=== PATIENT | female | born 1935 | race Caucasian/White ===

== ENCOUNTER 2017-03-19 05:53 | Day surgery (SDC) | payer MEDICARE, BC ==
[~2017-03-19 05:53] MED LIST: Dextrose 5%-0.45% NaCl 1,000 ML IV SCH; Sodium Chloride 0.9% 10 ML Syringe FLUSH PRN
[2017-03-19] MEDS ORDERED: Midazolam 1 MG/ML 2 ML SDV IV ONE ×3 (05:54→06:58)
[2017-03-19] MEDS ORDERED: fentaNYL 100 MCG/2 ML SDV IV ONE ×3 (05:54→06:57)
[2017-03-19] MEDS ORDERED: Midazolam 1 MG/ML 2 ML SDV ONE (06:18)
[2017-03-19] MEDS ORDERED: fentaNYL 100 MCG/2 ML SDV ONE (06:18)
--- NOTE | 2017-03-19 07:56 | OR ---
DATE: 03/19/2017 PROCEDURE: Esophagogastroduodenoscopy and multiple pinch biopsies. INSTRUMENT USED: GIF-Q180 Olympus video panendoscope. PREMEDICATIONS: No oral topical anesthesia used. Fentanyl 100 mcg intravenous, Versed 1.5 mg intravenous. Nasal O2 cannula. The procedure was done under pulse oximetry, BP recording, and child monitor. INDICATION: The patient with persistent upper abdominal pain, unexplained, and not responsive to medical measures, status post hiatal hernia surgery. DESCRIPTION OF PROCEDURE: Esophagogastroduodenoscopy is performed for detection of any active erosive lesions, malignancy also under consideration, H. pylori status to be determined, endoscopic hemostasis therapy if needed. The scope was passed with ease. Adequate visualization of the esophagus was made from proximal to distal areas. No upper esophageal lesions identified. No distal esophageal stricture. No uphill or downhill esophageal varices. No Alpa-Rivera tear. No evidence of erosive esophagitis by [place] criteria. No esophageal polyp or tumor mass identified. Z-line was seen at around 38 cm distal to the oral verge. No proximal gastric varices noted. Gastric fundus examination by retroflexion showed no polypoid lesions. No gastric ulcer, malignant mass, or vascular ectasia identified. Multiple 5 mm sized polyps were noted in the gastric antrum, three in number. Multiple pinch biopsies were obtained and sent for histopathology. Multiple pinch biopsies were also obtained from the gastric antrum and proximal body and sent for PyloriTek test for H. pylori and histopathology. Duodenal bulb showed no ulcer. Visualized second part of the duodenum was unremarkable. No bleeding was noted from any of the visualized areas at the completion of examination. Photographs were taken of the duodenal bulb, gastric antrum, fundus, and distal esophagus. IMPRESSION: Gastric antral polyps. The patient tolerated the procedure well. [facility] /[id number]
[2017-03-19 10:32] VITALS: BP 108/46
== END 2017-03-19 09:13 | disposition home or self-care (01) ==
LOC: DL.ENDO 05:53
PROVIDERS: ATTEND Internal Medicine Gastroenterology
DX: K29.50 Unspecified chronic gastritis without bleeding (principal); K31.7 Polyp of stomach and duodenum; E11.22 Type 2 diabetes mellitus with diabetic chronic kidney disease; I12.9 Hypertensive chronic kidney disease with stage 1 through stage 4 chronic kidney disease, or unspecified chronic kidney disease; N18.9 Chronic kidney disease, unspecified; E66.9 Obesity, unspecified; Z88.1 Allergy status to other antibiotic agents; Z88.2 Allergy status to sulfonamides; Z88.8 Allergy status to other drugs, medicaments and biological substances; E03.9 Hypothyroidism, unspecified; E78.5 Hyperlipidemia, unspecified; Z90.49 Acquired absence of other specified parts of digestive tract; Z90.710 Acquired absence of both cervix and uterus; Z87.09 Personal history of other diseases of the respiratory system; Z68.25 Body mass index [BMI] 25.0-25.9, adult
CPT/HCPCS: 43239; 87077; J2250; J3010; J7042; 88305; 88342

== ENCOUNTER 2018-08-09 07:21 | Day surgery (SDC) | payer MEDICARE, BC ==
[~2018-08-09 07:21] MED LIST changes: +Benzocaine 20% Topical Spray UD MUCMEM ONE; -Dextrose 5%-0.45% NaCl 1,000 ML IV SCH; +Midazolam 1 MG/ML 2 ML SDV ONE; -Sodium Chloride 0.9% 10 ML Syringe FLUSH PRN; +fentaNYL 100 MCG/2 ML SDV ONE
[2018-08-09] MEDS ORDERED: Midazolam 1 MG/ML 2 ML SDV IV ONE ×6 (07:22→08:36)
[2018-08-09] MEDS ORDERED: fentaNYL 100 MCG/2 ML SDV IV ONE ×3 (07:22→08:34)
[2018-08-09] MEDS ORDERED: Dextrose 5%-0.45% NaCl 1,000 ML IV SCH (08:00)
[2018-08-09] MEDS ORDERED: Benzocaine 20% Topical Spray UD MUCMEM ONE (08:22)
[2018-08-09 12:15] VITALS: BP 118/49
--- NOTE | 2018-08-09 13:47 | OR ---
DATE: 08/09/2018 PREOPERATIVE DIAGNOSIS: Epigastric discomfort. POSTOPERATIVE DIAGNOSIS: Epigastric discomfort. PROCEDURE: EGD with gastric biopsy. ANESTHESIA: Conscious sedation. SPECIMENS: Gastric biopsy. OPERATIVE FINDINGS: A 2-3 cm hiatal hernia. No distal esophagitis, what appears to be moderate gastritis, no other abnormality noted. INDICATION FOR PROCEDURE: This 82-year-old female has GERD symptoms and epigastric discomfort. PROCEDURE IN DETAIL: After adequate preparation, a gastroscope was inserted into the esophagus. This was passed down to the EG junction. She shows no evidence of distal esophageal abnormalities. No masses or esophagitis. She does have a 2-3 cm hiatal hernia. Photograph of the EG junction was taken. The scope was advanced into the stomach. Both forward and retroflexed views were done and confirmed a hiatal hernia. She does have some longitudinal streaks in the distal stomach. These were quite prominent and could be consistent with gastritis. A biopsy was taken for H. pylori examination and a second one for permanent pathology. The scope was advanced through the pylorus into the duodenum, which was normal. Air was suctioned from the stomach and the scope removed. [facility] /[id number]
--- NOTE | 2018-08-09 14:56 | OR ---
DATE: 08/09/2018 PREOPERATIVE DIAGNOSIS: Irritable bowel syndrome. POSTOPERATIVE DIAGNOSIS: Irritable bowel syndrome. PROCEDURE: Total colonoscopy with biopsy, excision of transverse colon polyp. ANESTHESIA: Conscious sedation. SPECIMEN: Transverse colon polyp. OPERATIVE FINDINGS: One small 2 mm transverse colon polyp and minimal, but numerous diverticula of the sigmoid colon. RECOMMENDATION: Followup colonoscopy for symptoms only. INDICATION FOR PROCEDURE: This 82-year-old female has irritable bowel syndrome and chronic abdominal pain. PROCEDURE IN DETAIL: After adequate preparation, a colonoscope was inserted into the rectum. This was easily passed all the way to the cecum. Confirmation of the cecum was made by visualization of the ileocecal valve and palpation in the right lower quadrant. The bowel prep was very good. On withdrawal of the scope, a good examination of the colon was accomplished. In the middle of the transverse colon is a small 2 mm polyp. Biopsy forceps were used to totally extract this polyp by biopsy. The only other abnormality noted was sigmoid diverticulosis. Rectal and anal examination were normal. Air was suctioned from the colon and the scope removed. [facility] /[id number]
== END 2018-08-09 11:00 | disposition home or self-care (01) ==
LOC: DL.ENDO 07:21
PROVIDERS: ATTEND Surgery
DX: K29.50 Unspecified chronic gastritis without bleeding (principal); K57.30 Diverticulosis of large intestine without perforation or abscess without bleeding; K58.0 Irritable bowel syndrome with diarrhea; D12.3 Benign neoplasm of transverse colon; E03.9 Hypothyroidism, unspecified; K21.9 Gastro-esophageal reflux disease without esophagitis; J45.909 Unspecified asthma, uncomplicated; I12.9 Hypertensive chronic kidney disease with stage 1 through stage 4 chronic kidney disease, or unspecified chronic kidney disease; E11.22 Type 2 diabetes mellitus with diabetic chronic kidney disease; N18.3 Chronic kidney disease, stage 3 (moderate); Z86.73 Personal history of transient ischemic attack (TIA), and cerebral infarction without residual deficits; Z79.84 Long term (current) use of oral hypoglycemic drugs; Z79.899 Other long term (current) drug therapy
CPT/HCPCS: 43239; 45380; 87077; A9270; J2250; J3010; J7042; 88305; 88342

== ENCOUNTER 2021-01-28 10:19 | Emergency (ER) | payer MEDICARE, BC ==
[2021-01-28 10:43] VITALS: BP 147/61; PULSE 87
--- NOTE | 2021-01-28 11:09 | EDM.PDOC ---
<Nick Samuel - Last Filed: 01/28/21 12:31> ED HPI GENERAL MEDICAL PROBLEM - General Chief Complaint: General Time Seen by Provider: 01/28/21 10:45 - Related Data Allergies Allergy/AdvReac Type Severity Reaction Status Date / Time oxycodone Allergy Severe Anaphylactic Verified 01/28/21 10:43 Shock albuterol Allergy Cannot Verified 01/28/21 10:43 Remember amoxicillin Allergy Rash Verified 01/28/21 10:43 doxepin Allergy Rash Verified 01/28/21 10:43 sitagliptin [From Januvia] Allergy Diarrhea Verified 01/28/21 10:43 sulfamethoxazole Allergy Rash Verified 01/28/21 10:43 [From Bactrim] trimethoprim [From Bactrim] Allergy Rash Verified 01/28/21 10:43 Home Meds: Home Meds Bisoprolol/Hydrochlorothiazide [Bisoprolol-Hctz 10-6.25 mg Tab] 2 tab PO DAILY 12/30/13 [History] Glimepiride 2 mg PO DAILY 12/30/13 [History] Losartan [Cozaar] 100 mg PO DAILY 12/30/13 [History] Omeprazole 20 mg PO BID 12/30/13 [History] Simvastatin 20 mg PO DAILY 12/30/13 [History] Alendronate [Fosamax] 70 mg PO WEEKLY 07/21/16 [History] traZODone 50 mg PO BEDTIME 07/21/16 [History] Albuterol [Ventolin HFA] 2 puff INH Q6H 03/18/17 [History] Levothyroxine 150 mcg PO DAILY 03/18/17 [History] Levothyroxine [Synthroid] 50 mcg PO DAILY 03/18/17 [History] Meclizine [Antivert] 12.5 mg PO BEDTIME 03/18/17 [History] Melatonin 30 mg PO BEDTIME 03/18/17 [History] amLODIPine [Norvasc] 5 mg PO DAILY 03/18/17 [History] Aspirin [Low Dose Aspirin EC] 81 mg PO DAILY 08/06/18 [History] Course - Radiology Interpretation Free Text/Narrative:: [facility] Final Radiology Report Call: [phone] assistance Online chat: [email or web address] Name: TAMMY YORK Age: 85Years F Date: 01/28/2021 SSN: -- : [id number] Study: CT CERVICAL SPINE WO CONT Requesting Physician: Anthony Fowler Images: [id number] Addl Studies: Provided Clinical History: fall while off her o2 hit her head Contrast: Without Contrast Medium: Contrast Amount: Contrast Method: Page 1 of 2 PROCEDURE INFORMATION: Exam: CT Cervical Spine Without Contrast Exam date and time: 01/28/2021 11:25 AM Age: 85 years old Clinical indication: Injury or trauma; Fall; Blunt trauma; Additional info: Fall while off her o2 hit her head TECHNIQUE: Imaging protocol: Computed tomography images of the cervical spine without contrast. Radiation optimization: All CT scans at this facility use at least one of these dose optimization techniques: automated exposure control; mA and/or kV adjustment per patient size (includes targeted exams where dose is matched to clinical indication); or iterative reconstruction. COMPARISON: CT Chest Abdomen Pelvis w Cont 12/12/2020 9:36:23 AM FINDINGS: Bones/joints: Reversal of the cervical lordosis may be positional or due to muscle spasm. Slight grade 1 degenerative anterolisthesis of C2-C3, C3 on C4, C7 on T1 and T1 on T2. Mild levoconvex scoliosis. No acute fracture seen. Severe multilevel cervical facet arthropathy. Severe degenerative changes at C1-C2. Disc height loss and spondylosis is advanced from C3-C4 through C6-C7, additionally at T1-2. No severe central spinal canal stenosis. Uncovertebral and facet arthropathy causing multilevel neural foraminal stenoses. Discs/Spinal canal/Neural foramina: See "Bones/joints" finding. Mastoid air cells: Dependent bilateral mastoid effusions. Thyroid: There is a 9 mm nodule in the thyroid isthmus. The left thyroid lobe is atrophic or surgically absent. Lungs: Left apical lung pleural effusion has increased since the prior CT chest. Soft tissues: Unremarkable. TAMMY YORK | Final Radiology Report CONFIDENTIALITY STATEMENT This report is intended only for use by the referring physician, and only in accordance with law. If you received this in error, call [phone]. Page 2 of 2 A right chest port is partially visualized. IMPRESSION: 1. No cervical spine fracture seen. 2. Increased left apical lung effusion. COMMENTS: Consistent with the [employer]'s Incidental Findings Committee white paper (J Am Raymond Radiol 2015): In patients aged 35 years and older with an incidental thyroid nodule equal to or greater than 1.[address], MRI or extrathyroidal US, further evaluation with dedicated thyroid US is recommended for patients with normal life expectancy and without comorbidities. For smaller nodules without suspicious features, no further evaluation or follow up is recommended. Thank you for allowing us to participate in the care of your patient. Dictated and Authenticated by: Tanvi Rodrigues MD 01/28/2021 12:20 PM Central Time ([place] & [place]) [facility] Final Radiology Report with Addendum Call: [phone] assistance Online chat: [email or web address] Name: TAMMY YORK Age: 85Years F Date: 01/28/2021 SSN: -- : [id number] Study: CT MAX FACIAL SINUS WO CONT Requesting Physician: Anthony Fowler Images: [id number] Addl Studies: Provided Clinical History: fall while off her o2 hit her head Contrast: Without Contrast Medium: Contrast Amount: Contrast Method: Page 1 of 2 Addendum created by Tanvi Rodrigues MD on 01/28/2021 12:32 PM Central Time ([place] & [place]): In the right orbit there is mild retrobulbar fat contusion. Thin hematoma along the posterior right globe surface measures 1-2 mm in thickness, image 42 series 9. Initial Report created on 01/28/2021 12:23 PM Central Time ([place] & [place]): PROCEDURE INFORMATION: Exam: CT Maxillofacial Without Contrast Exam date and time: 01/28/2021 11:25 AM Age: 85 years old Clinical indication: Injury or trauma; Fall; Blunt trauma (contusions or hematomas); Ocular (eye or eyeball); Right; Additional info: Fall while off her o2 hit her head TECHNIQUE: Imaging protocol: Computed tomography images of the face without contrast. Radiation optimization: All CT scans at this facility use at least one of these dose optimization techniques: automated exposure control; mA and/or kV adjustment per patient size (includes targeted exams where dose is matched to clinical indication); or iterative reconstruction. COMPARISON: CT Head wo Cont 08/21/2015 9:09 AM FINDINGS: Orbital cavity: Thinning of the lenses of the globes consistent with prior lens surgery. Bones/joints: No acute fracture seen. Marked degenerative changes of the right temporomandibular joint. Paranasal sinuses: Normal. No air-fluid levels. Mastoid air cells: Small bilateral mastoid effusions. Soft tissues: Right frontal scalp and periorbital soft tissue swelling. IMPRESSION: TAMMY YORK | Final Radiology Report CONFIDENTIALITY STATEMENT This report is intended only for use by the referring physician, and only in accordance with law. If you received this in error, call [phone]. Page 2 of 2 No facial bone fracture seen. Thank you for allowing us to participate in the care of your patient. Dictated and Authenticated by: Tanvi Rodrigues MD 01/28/2021 12:23 PM Central Time ([place] & [place]) [facility] Final Radiology Report Call: [phone] assistance Online chat: [email or web address] Name: TAMMY YORK Age: 85Years F Date: 01/28/2021 SSN: -- : 1935 Study: CT HEAD WO CONT Requesting Physician: Anthony Fowler Images: [id number] Addl Studies: Provided Clinical History: fall while off her o2 hit her head Contrast: Without Contrast Medium: Contrast Amount: Contrast Method: Page 1 of 2 PROCEDURE INFORMATION: Exam: CT Head Without Contrast Exam date and time: 01/28/2021 11:25 AM Age: 85 years old Clinical indication: Injury or trauma; Fall; Blunt trauma (contusions or hematomas); Additional info: Fall while off her o2 hit her head TECHNIQUE: Imaging protocol: Computed tomography of the head without contrast. Radiation optimization: All CT scans at this facility use at least one of these dose optimization techniques: automated exposure control; mA and/or kV adjustment per patient size (includes targeted exams where dose is matched to clinical indication); or iterative reconstruction. COMPARISON: CT Head wo Cont 08/21/2015 9:09 AM FINDINGS: Brain: The brain demonstrates diffuse volume loss. There is white matter hypodensity most consistent with chronic small vessel ischemic change. No visible evolving territorial infarct. No hemorrhage. A focal, chronic appearing left thalamic lacunar infarct. Cerebral ventricles: The ventricles are enlarged in keeping with volume loss. Paranasal sinuses: Visualized sinuses are unremarkable. No fluid levels. Mastoid air cells: Visualized mastoid air cells are well aerated. Orbital cavity: Thinning of the lenses of the globes consistent with prior lens surgery. Bones/joints: No acute calvarial fracture seen. Degenerative changes of the right temporomandibular joint. Soft tissues: Right frontal scalp and periorbital soft tissue swelling. There is left parietal scalp soft tissue swelling. IMPRESSION: No acute intracranial abnormality seen. TAMMY YORK | Final Radiology Report CONFIDENTIALITY STATEMENT This report is intended only for use by the referring physician, and only in accordance with law. If you received this in error, call [phone]. Page 2 of 2 Thank you for allowing us to participate in the care of your patient. Dictated and Authenticated by: Tanvi Rodrigues MD 01/28/2021 12:29 PM Central Time ([place] & [place]) Departure - Departure Disposition: Home, Self-Care 01 Clinical Impression: Contusion, orbital tissues Qualifiers: Encounter type: initial encounter Laterality: right Qualified Code(s): S05.11XA - Contusion of eyeball and orbital tissues, right eye, initial encounter Contusion, eye Qualifiers: Encounter type: initial encounter Laterality: right Qualified Code(s): S05.11XA - Contusion of eyeball and orbital tissues, right eye, initial encounter - Discharge Information Instructions: Eye Contusion, [id number], Hematoma, [id number] Forms: ED Department Discharge Additional Instructions: Monitor the pt fro any changes in mental status, NV, severe haji as these may be signs for an intracranial bleed. If she experiences these symptoms return her to the ER immediately. Have the pt wear her oxygen at all times. If any new symptoms or concerns develop contact your primary care facility or return to the ER. <Anthony Fowler - Last Filed: 01/28/21 15:36> ED HPI GENERAL MEDICAL PROBLEM - General Source of Information: Reports: Patient History Limitations: Reports: No Limitations - History of Present Illness INITIAL COMMENTS - FREE TEXT/NARRATIVE: 85 y/o F brought in by [facility] after falling at the assisted. Pt is a resident of the assisted and is normally on o2 3L /. The pt took off her oxygen to use the restroom and became dizzy and fell hitting her head on the wall on the way down. Denies LOC. C/O R eye pn and forehead pn. EMS states staff told them the pts sats were 73% on ra and came back up to the 90's when she was put back on her normal 3L. The pt has a hx of lung cancer and is currently receiving treatment. She also reports that she is currently being treated for PNA. She denies NVD, neck pn, abd pn, extremity pn, pelvic pn, difficulty voiding. Onset: Today, Sudden Duration: Hour(s): Location: Reports: Head Anterior Head Pain Score (Numeric/FACES): 8 Past Medical History HEENT History: Reports: Impaired Vision Other HEENT History: WEARS CORRECTIVE LENS. UPPER AND LOWER DENTURE Cardiovascular History: Reports: High Cholesterol, Hypertension Respiratory History: Reports: Asthma Gastrointestinal History: Reports: GERD, Irritable Bowel Syndrome Other Gastrointestinal History: ABDOMINAL HERNIA Genitourinary History: Reports: Chronic Renal Insuffiency TRANSFORMATION SPECIALIST History: Reports: Musculoskeletal History: Reports: Arthritis, Fracture, Fibromyalgia, Osteop orosis, Other (See Below) Other Musculoskeletal History: degenerative joint disease. S/P RIGHT CLAVICLE FRACTURE Neurological History: Reports: CVA, Other (See Below) Other Neuro History: insomnia. cerebral infarct Psychiatric History: Reports: None Endocrine/Metabolic History: Reports: Diabetes, Type II, Hypothyroidism Hematologic History: Reports: None Immunologic History: Reports: None Oncologic (Cancer) History: Reports: None Dermatologic History: Reports: Psoriasis - Infectious Disease History Infectious Disease History: Reports: Chicken Pox, Measles, Scarlet Fever - Past Surgical History Head Surgeries/Procedures: Reports: None HEENT Surgical History: Reports: Cataract Surgery, Other (See Below) Cardiovascular Surgical History: Reports: None Respiratory Surgical History: Reports: None GI Surgical History: Reports: Cholecystectomy, Hernia Repair/Other Other GI Surgeries/Procedures: hiatal hernia surg Female Surgical History: Reports: Hysterectomy, Salpingo-Oophorectomy Endocrine Surgical History: Reports: None Neurological Surgical History: Reports: None Musculoskeletal Surgical History: Reports: Other (See Below) Other Musculoskeletal Surgeries/Procedures:: RIGHT HAND 2ND & 3RD JOINT REPLACEMENT Social & Family History - Family History Family Medical History: No Pertinent Family History - Tobacco Use Tobacco Use Status *Q: Former Tobacco User Used Tobacco, but Quit: Yes Month/Year Tobacco Last Used: 1960s - Caffeine Use Caffeine Use: Reports: Tea Other Caffeine Use: 'COKE' NOT DAILY - Recreational Drug Use Recreational Drug Use: No ED ROS GENERAL - Review of Systems Review Of Systems: Comprehensive ROS is negative, except as noted in HPI. ED EXAM, GENERAL - Physical Exam Exam: See Below Exam Limited By: No Limitations General Appearance: Alert Eye Exam: Right Eye: Bleeding, Periorbital Changes (periorbital swelling, contusion), Bilateral Eye: PERRL (perrl with conjugate gaze) Ears: Normal External Exam, Normal Canal, Hearing Grossly Normal, Normal TMs Nose: Normal Inspection, Normal Mucosa, No Blood Throat/Mouth: Normal Lips, Normal Teeth, Other Head: Atraumatic, Normocephalic Neck: Supple, Non-Tender Respiratory/Chest: No Respiratory Distress Cardiovascular: Normal Peripheral Pulses, Regular Rate, Rhythm, No JVD, No Murmur GI/Abdominal: Soft, Non-Tender (Female) Exam: Deferred Rectal (Female) Exam: Deferred Back Exam: Normal Inspection, Full Range of Motion Extremities: Normal Inspection, Normal Range of Motion, Non-Tender, No Pedal Edema, Normal Capillary Refill Neurological: Alert, Oriented, Normal Cognition Psychiatric: Normal Affect, Normal Mood Skin Exam: Warm, Dry, Intact ED GENERAL MEDICAL PROCEDURES - Laceration/Wound Repair Anterior Head Lac/wound length in cm: 2 Appearance: Subcutaneous Local Anesthesia - Lidocaine (Xylocaine): 1% with EPI Local Anesthetic Volume: 3cc Skin Prep: Saline Exploration/Debridement/Repair: Wound Explored Closed with: Sutures Suture Size: 4-0 # of Sutures: 3 Suture Type: Interrupted Sterile Dressing Applied: Nurse Tetanus Status Addressed: Yes Complications: No #1 Interpretation EKG Date: 01/28/21 Time: 11:22 Rhythm: NSR P-Wave: Present QRS: Normal ST-T: Normal QT: Normal Course - Vital Signs Last Recorded V/S: Last Vital Signs Temp 98.1 F 01/28/21 10:42 Pulse 87 01/28/21 10:42 Resp 20 01/28/21 10:42 BP 147/61 H 01/28/21 10:42 Pulse Ox 97 01/28/21 10:42 - Orders/Labs/Meds Orders: Active Orders 24 hr Category Date Time Status UA RFX KAVITHA AND CULT IF INDIC [URIN] Stat Lab 01/28/21 11:02 Ordered Labs: Laboratory Tests 01/28/21 01/28/21 01/28/21 Range/Units 11:11 11:11 11:11 WBC 5.7 (5.0-10.0) 10^3/uL RBC 3.10 L (4.2-5.4) 10^6/uL Hgb 9.4 L D (12.0-16.0) g/dL Hct 31.4 L (37.0-47.0) % MCV 101.3 H D (80-100) fL MCH 30.3 (27.0-34.0) pg MCHC 29.9 L (33.0-35.0) g/dL Plt Count 270 (150-450) 10^3/uL Neut % (Auto) 71.1 (42.2-75.2) % Lymph % (Auto) 11.7 L (20.5-50.1) % [place] % (Auto) 10.1 H (2-8) % Eos % (Auto) 6.7 H (1.0-3.0) % Baso % (Auto) 0.4 (0.0-1.0) % Sodium 147 H (136-145) mmol/L Potassium 4.6 (3.5-5.1) mmol/L Chloride 108 H (98-107) mmol/L Carbon Dioxide 34 H (21-32) mmol/L Anion Gap 9.6 (7-13) mEq/L BUN 15 (7-18) mg/dL Creatinine 0.94 (0.55-1.02) mg/dL Est Cr Clr Drug Dosing 37.51 mL/min Estimated GFR (MDRD) 57 BUN/Creatinine Ratio 16.0 (No establ ref range) Glucose 96 (70-99) mg/dL Calcium 8.6 (8.5-10.1) mg/dL Magnesium 1.7 L (1.8-2.4) mg/dL Iron 26 L (50-170) ug/dL TIBC 193 L (250-450) ug/dL % Saturation 13.5 L (20.0-50.0) % Total Bilirubin 0.2 (0.2-1.0) mg/dL AST 13 L (15-37) U/L ALT 11 L (14-59) U/L Alkaline Phosphatase 65 (46-116) U/L Troponin I High Sens 14 (<=51) pg/mL Total Protein 6.2 L (6.4-8.2) g/dL Albumin 2.2 L (3.4-5.0) g/dL Globulin 4.0 Albumin/Globulin Ratio 0.55 TSH, Ultra Sensitive 1.46 (0.36-3.74) uIU/mL Meds: Medications Discontinued Medications Generic Name Dose Route Start Last Admin Trade Name Freq PRN Reason Stop Dose Admin Bacitracin 1 dose 01/28/21 15:05 01/28/21 15:16 Bacitracin Oint 1 Gm U/D Packet TOP 01/28/21 15:06 1 dose ONETIME ONE Administration Lidocaine/Epinephrine 20 ml 01/28/21 13:14 01/28/21 13:20 Lidocaine 1% With Epinephrine 1:100,000 20 Ml Mdv INJECT 01/28/21 13:15 20 ml ONETIME ONE Administration - Re-Assessments/Exams Free Text/Narrative Re-Assessment/Exam: 01/28/21 13:05 I consulted with the pts oncologist Dr. Bass at [facility] about the pts low iron and TIBC. He advised it is likely from anemai fo chronic disease and that no treatment is necessary for those lab results at this time. I discussed the labs, exam, and imaging with the pt and explained that she has a large contusion to her R orbit. I explained that she has no intracranial bleed or fractures of any kind. The pt feels safe to go home. Departure - Departure Time of Disposition: 13:09 Condition: Fair - Discharge Information *PRESCRIPTION DRUG MONITORING PROGRAM REVIEWED*: Not Applicable *COPY OF PRESCRIPTION DRUG MONITORING REPORT IN PATIENT JOSH: Not Applicable Sepsis Event Note (ED) - Evaluation Sepsis Screening Result: No Definite Risk - Focused Exam Vital Signs: Vital Signs Temp Pulse Resp BP Pulse Ox 01/28/21 10:42 98.1 F 87 20 147/61 H 97 - My Orders Last 24 Hours: My Active Orders 01/28/21 11:02 UA RFX KAVITHA AND CULT IF INDIC [URIN] Stat - Assessment/Plan Last 24 Hours: My Active Orders 01/28/21 11:02 UA RFX KAVITHA AND CULT IF INDIC [URIN] Stat
[2021-01-28 11:44] LABS: ANION GAP 9.6 mEq/L (7-13)
--- NOTE | 2021-01-28 12:20 | CT ---
PROCEDURE INFORMATION: Exam: CT Cervical Spine Without Contrast Exam date and time: 01/28/2021 11:25 AM Age: 85 years old Clinical indication: Injury or trauma; Fall; Blunt trauma; Additional info: Fall while off her o2 hit her head TECHNIQUE: Imaging protocol: Computed tomography images of the cervical spine without contrast. Radiation optimization: All CT scans at this facility use at least one of these dose optimization techniques: automated exposure control; mA and/or kV adjustment per patient size (includes targeted exams where dose is matched to clinical indication); or iterative reconstruction. COMPARISON: CT Chest Abdomen Pelvis w Cont 12/12/2020 9:36:23 AM FINDINGS: Bones/joints: Reversal of the cervical lordosis may be positional or due to muscle spasm. Slight grade 1 degenerative anterolisthesis of C2-C3, C3 on C4, C7 on T1 and T1 on T2. Mild levoconvex scoliosis. No acute fracture seen. Severe multilevel cervical facet arthropathy. Severe degenerative changes at C1-C2. Disc height loss and spondylosis is advanced from C3-C4 through C6-C7, additionally at T1-2. No severe central spinal canal stenosis. Uncovertebral and facet arthropathy causing multilevel neural foraminal stenoses. Discs/Spinal canal/Neural foramina: See "Bones/joints" finding. Mastoid air cells: Dependent bilateral mastoid effusions. Thyroid: There is a 9 mm nodule in the thyroid isthmus. The left thyroid lobe is atrophic or surgically absent. Lungs: Left apical lung pleural effusion has increased since the prior CT chest. Soft tissues: Unremarkable. A right chest port is partially visualized. IMPRESSION: 1. No cervical spine fracture seen. 2. Increased left apical lung effusion. COMMENTS: Consistent with the [employer] [place]'s Incidental Findings Committee white paper (J Am Raymond Radiol 2015): In patients aged 35 years and older with an incidental thyroid nodule equal to or greater than 1.[address], MRI or extrathyroidal US, further evaluation with dedicated thyroid US is recommended for patients with normal life expectancy and without comorbidities. For smaller nodules without suspicious features, no further evaluation or follow up is recommended.
--- NOTE | 2021-01-28 12:23 | CT ---
PROCEDURE INFORMATION: Exam: CT Maxillofacial Without Contrast Exam date and time: 01/28/2021 11:25 AM Age: 85 years old Clinical indication: Injury or trauma; Fall; Blunt trauma (contusions or hematomas); Ocular (eye or eyeball); Right; Additional info: Fall while off her o2 hit her head TECHNIQUE: Imaging protocol: Computed tomography images of the face without contrast. Radiation optimization: All CT scans at this facility use at least one of these dose optimization techniques: automated exposure control; mA and/or kV adjustment per patient size (includes targeted exams where dose is matched to clinical indication); or iterative reconstruction. COMPARISON: CT Head wo Cont 08/21/2015 9:09 AM FINDINGS: Orbital cavity: Thinning of the lenses of the globes consistent with prior lens surgery. Bones/joints: No acute fracture seen. Marked degenerative changes of the right temporomandibular joint. Paranasal sinuses: Normal. No air-fluid levels. Mastoid air cells: Small bilateral mastoid effusions. Soft tissues: Right frontal scalp and periorbital soft tissue swelling. IMPRESSION: No facial bone fracture seen.
--- NOTE | 2021-01-28 12:29 | CT ---
PROCEDURE INFORMATION: Exam: CT Head Without Contrast Exam date and time: 01/28/2021 11:25 AM Age: 85 years old Clinical indication: Injury or trauma; Fall; Blunt trauma (contusions or hematomas); Additional info: Fall while off her o2 hit her head TECHNIQUE: Imaging protocol: Computed tomography of the head without contrast. Radiation optimization: All CT scans at this facility use at least one of these dose optimization techniques: automated exposure control; mA and/or kV adjustment per patient size (includes targeted exams where dose is matched to clinical indication); or iterative reconstruction. COMPARISON: CT Head wo Cont 08/21/2015 9:09 AM FINDINGS: Brain: The brain demonstrates diffuse volume loss. There is white matter hypodensity most consistent with chronic small vessel ischemic change. No visible evolving territorial infarct. No hemorrhage. A focal, chronic appearing left thalamic lacunar infarct. Cerebral ventricles: The ventricles are enlarged in keeping with volume loss. Paranasal sinuses: Visualized sinuses are unremarkable. No fluid levels. Mastoid air cells: Visualized mastoid air cells are well aerated. Orbital cavity: Thinning of the lenses of the globes consistent with prior lens surgery. Bones/joints: No acute calvarial fracture seen. Degenerative changes of the right temporomandibular joint. Soft tissues: Right frontal scalp and periorbital soft tissue swelling. There is left parietal scalp soft tissue swelling. IMPRESSION: No acute intracranial abnormality seen.
[2021-01-28] MEDS ORDERED: Lidocaine 1% with EPINEPHrine 1:100,000 20 ML MDV INJECT ONE (13:14)
[2021-01-28] MEDS ORDERED: Bacitracin Oint 1 GM U/D Packet TOP ONE (15:05)
[2021-01-28] MEDS ORDERED: Acetaminophen/HYDROcodone 325-5 MG Tab PO ONE (16:54)
== END 2021-01-28 17:47 | disposition home or self-care (01) ==
LOC: DL.ED 10:19
DX: S01.81XA Laceration without foreign body of other part of head, initial encounter (principal); S05.11XA Contusion of eyeball and orbital tissues, right eye, initial encounter; E78.00 Pure hypercholesterolemia, unspecified; I12.9 Hypertensive chronic kidney disease with stage 1 through stage 4 chronic kidney disease, or unspecified chronic kidney disease; E11.22 Type 2 diabetes mellitus with diabetic chronic kidney disease; N18.9 Chronic kidney disease, unspecified; J45.909 Unspecified asthma, uncomplicated; K21.9 Gastro-esophageal reflux disease without esophagitis; M19.90 Unspecified osteoarthritis, unspecified site; E11.9 Type 2 diabetes mellitus without complications; E03.9 Hypothyroidism, unspecified; Z87.891 Personal history of nicotine dependence; Z85.118 Personal history of other malignant neoplasm of bronchus and lung; Z88.5 Allergy status to narcotic agent; Z88.8 Allergy status to other drugs, medicaments and biological substances; Z88.0 Allergy status to penicillin; Z88.2 Allergy status to sulfonamides; Z79.84 Long term (current) use of oral hypoglycemic drugs; Z79.82 Long term (current) use of aspirin; Z79.899 Other long term (current) drug therapy; W18.30XA Fall on same level, unspecified, initial encounter; Y92.129 Unspecified place in nursing home as the place of occurrence of the external cause
CPT/HCPCS: 12011; 36415; 70450; 70486; 72125; 80053; 83540; 83550; 83735; 84443; 84484; 85025; 93005; 99284; A9270

== ENCOUNTER 2021-01-29 17:26 | Emergency (ER) | payer MEDICARE, BC ==
[2021-01-29 18:38] VITALS: BP 139/66; PULSE 92
--- NOTE | 2021-01-29 19:47 | EDM.PDOC ---
ED HPI GENERAL MEDICAL PROBLEM - General Chief Complaint: Lower Extremity Injury/Pain Stated Complaint: AMBULANCE Time Seen by Provider: 01/29/21 19:47 Source of Information: Reports: Patient, Family (Daughter), Old Records, RN, RN Notes Reviewed History Limitations: Reports: No Limitations - History of Present Illness INITIAL COMMENTS - FREE TEXT/NARRATIVE: Shannan is an 85 y/o female with history of lung cancer who presents to the ED via personal vehicle with complaints of fall. The patient was examined at this facility following a fall yesterday and was discharged back to the half-way; she continues to deny vision changes, headache, lethargy, or projectile vomiting. She states her fall today occurred while she was transferring to the toilet, with the assistance of her FWW and a UNIT CLERK, when her knees gave out and she fell directly on to them. She did not strike her head and denies loss of consciousness during this fall. The patient states she takes hydrocodone and gabapentin for her cancer pain, she was given a dose prior to leaving the half-way. She reports pain and bruising to her bilateral knees and left distal foot. She denies loss of sensory function to the affected extremities. She denies history of injury to the affected joints. Knee Pain Score (Numeric/FACES): 8 - Related Data Allergies Allergy/AdvReac Type Severity Reaction Status Date / Time oxycodone Allergy Severe Anaphylactic Verified 01/28/21 10:43 Shock albuterol Allergy Cannot Verified 01/28/21 10:43 Remember amoxicillin Allergy Rash Verified 01/28/21 10:43 doxepin Allergy Rash Verified 01/28/21 10:43 sitagliptin [From Januvia] Allergy Diarrhea Verified 01/28/21 10:43 sulfamethoxazole Allergy Rash Verified 01/28/21 10:43 [From Bactrim] trimethoprim [From Bactrim] Allergy Rash Verified 01/28/21 10:43 Home Meds: Home Meds Bisoprolol/Hydrochlorothiazide [Bisoprolol-Hctz 10-6.25 mg Tab] 2 tab PO DAILY 12/30/13 [History] Glimepiride 2 mg PO DAILY 12/30/13 [History] Losartan [Cozaar] 100 mg PO DAILY 12/30/13 [History] Omeprazole 20 mg PO BID 12/30/13 [History] Simvastatin 20 mg PO DAILY 12/30/13 [History] Alendronate [Fosamax] 70 mg PO WEEKLY 07/21/16 [History] traZODone 50 mg PO BEDTIME 07/21/16 [History] Albuterol [Ventolin HFA] 2 puff INH Q6H 03/18/17 [History] Levothyroxine 150 mcg PO DAILY 03/18/17 [History] Levothyroxine [Synthroid] 50 mcg PO DAILY 03/18/17 [History] Meclizine [Antivert] 12.5 mg PO BEDTIME 03/18/17 [History] Melatonin 30 mg PO BEDTIME 03/18/17 [History] amLODIPine [Norvasc] 5 mg PO DAILY 03/18/17 [History] Aspirin [Low Dose Aspirin EC] 81 mg PO DAILY 08/06/18 [History] Past Medical History HEENT History: Reports: Impaired Vision Other HEENT History: WEARS CORRECTIVE LENS. UPPER AND LOWER DENTURE Cardiovascular History: Reports: High Cholesterol, Hypertension Respiratory History: Reports: Asthma Gastrointestinal History: Reports: GERD, Irritable Bowel Syndrome Other Gastrointestinal History: ABDOMINAL HERNIA Genitourinary History: Reports: Chronic Renal Insuffiency FEED HANDLER History: Reports: Musculoskeletal History: Reports: Arthritis, Fracture, Fibromyalgia, Osteoporosis, Other (See Below) Other Musculoskeletal History: degenerative joint disease. S/P RIGHT CLAVICLE FRACTURE Neurological History: Reports: CVA, Other (See Below) Other Neuro History: insomnia. cerebral infarct Psychiatric History: Reports: None Endocrine/Metabolic History: Reports: Diabetes, Type II, Hypothyroidism Hematologic History: Reports: None Immunologic History: Reports: None Oncologic (Cancer) History: Reports: None Dermatologic History: Reports: Psoriasis - Infectious Disease History Infectious Disease History: Reports: Chicken Pox, Measles, Scarlet Fever - Past Surgical History Head Surgeries/Procedures: Reports: None HEENT Surgical History: Reports: Cataract Surgery, Other (See Below) Cardiovascular Surgical History: Reports: None Respiratory Surgical History: Reports: None GI Surgical History: Reports: Cholecystectomy, Hernia Repair/Other Other GI Surgeries/Procedures: hiatal hernia surg Female Surgical History: Reports: Hysterectomy, Salpingo-Oophorectomy Endocrine Surgical History: Reports: None Neurological Surgical History: Reports: None Musculoskeletal Surgical History: Reports: Other (See Below) Other Musculoskeletal Surgeries/Procedures:: RIGHT HAND 2ND & 3RD JOINT REPLACEMENT Social & Family History - Family History Family Medical History: No Pertinent Family History - Tobacco Use Tobacco Use Status *Q: Former Tobacco User Years of Tobacco use: 10 Used Tobacco, but Quit: Yes Month/Year Tobacco Last Used: 05/04/1989 - Caffeine Use Caffeine Use: Reports: Tea Other Caffeine Use: 'COKE' NOT DAILY - Recreational Drug Use Recreational Drug Use: No Review of Systems - Review of Systems Review Of Systems: Comprehensive ROS is negative, except as noted in HPI. ED EXAM, GENERAL - Physical Exam Exam: See Below Exam Limited By: No Limitations General Appearance: Alert, No Apparent Distress Eye Exam: Right Eye: Conjunctival Injection (Hemorrhage to medial sclera), Periorbital Changes (Bruising and edema diffuse, extending into forehead), Bilateral Eye: PERRL (3mm) Ears: Normal External Exam, Normal Canal, Hearing Grossly Normal, Normal TMs Ear Exam: Bilateral Ear: Auricle Normal, Canal Normal, TM normal Nose: Nasal Swelling (To right), Other (Nasal bruising to right face) Head: Normocephalic, Facial Swelling (To right ), Facial Tenderness (To right). No: Atraumatic Neck: Normal Inspection, Full Range of Motion Respiratory/Chest: No Respiratory Distress, No Accessory Muscle Use, Chest Non- Tender, Rhonchi (To bilateral lobes) Cardiovascular: Normal Peripheral Pulses, Regular Rate, Rhythm, No Gallop, No Murmur, No Rub Peripheral Pulses: 2+: Radial (L), Radial (R), Dorsalis Pedis (L), Dorsalis Pedis (R) GI/Abdominal: Normal Bowel Sounds, Soft, Non-Tender, No Distention, No Abnormal Bruit, No Mass, Pelvis Stable. No: Guarding, Rigid, Rebound (Female) Exam: Deferred Rectal (Female) Exam: Deferred Back Exam: Normal Inspection, Full Range of Motion Extremities: Normal Capillary Refill, Pedal Edema (To left dorsal foot), Leg Pain (To bilateral anterior knees and left distal, dorsal foot), Limited Range of Motion (Chronic), Other (Ecchymosis to bilateral anterior kness and left dorsal foot with edema to foot). No: Joint Swelling, Increased Warmth Neurological: Alert, Oriented, CN II-XII Intact, Normal Cognition, No Motor/Sensory Deficits, Abnormal Gait (FWW with ambulation) Psychiatric: Normal Affect, Normal Mood Skin Exam: Warm, Dry, Intact, No Rash, Ecchymosis (To left dorsal distal foot). No: Erythema, Jaundice, Mottled, Pallor Course - Vital Signs Last Recorded V/S: Last Vital Signs Temp 98.1 F 01/29/21 18:35 Pulse 92 01/29/21 18:35 Resp 16 01/29/21 18:35 BP 139/66 01/29/21 18:35 Pulse Ox 94 L 01/29/21 18:35 - Orders/Labs/Meds Orders: Active Orders 24 hr Category Date Time Status DME for Discharge [COMM] Stat Oth 01/29/21 21:29 Ordered - Radiology Interpretation Free Text/Narrative:: [facility] Final Radiology Report Call: [phone] assistance Online chat: [email or web address] [facility] Name: SHANNAN YORK Age: 85Years F Date: 01/29/2021 SSN: -- : 1935 Study: CR FOOT COMP MIN 3V LT Requesting Physician: Alicia Giraldo Images: 3 Addl Studies: Provided Clinical History: Fall from ground level Contrast: Contrast Medium: Contrast Amount: Contrast Method: CONFIDENTIALITY STATEMENT This report is intended only for use by the referring physician, and only in accordance with law. If you received this in error, call [phone]. Page 1 of 1 PROCEDURE INFORMATION: Exam: XR Left Foot Exam date and time: 01/29/2021 7:56 PM Age: 85 years old Clinical indication: Pain; Foot; Left; Additional info: Fall from ground level TECHNIQUE: Imaging protocol: XR Left foot. Views: 3 or more views. COMPARISON: No relevant prior studies available. FINDINGS: Bones/joints: Old healed fractures of the 5th metatarsal and the proximal phalanx of the 4th metatarsal are noted. Moderate degenerative changes seen at between the navicular and the cuneiforms. No definite acute fracture is noted. Soft tissues: Extensive soft tissue swelling is seen dorsally over the forefoot. IMPRESSION: No definite acute fracture is identified. Thank you for allowing us to participate in the care of your patient. Dictated and Authenticated by: Quique Dobbs MD 01/29/2021 9:07 PM Central Time ([place] & [place]) [facility] Final Radiology Report Call: [phone] assistance Online chat: [email or web address] Name: SHANNAN YORK Age: 85Years F Date: 01/29/2021 SSN: -- : 1935 Study: CR KNEE 3V RT Requesting Physician: Alicia Giraldo Images: 3 Addl Studies: Provided Clinical History: Fall from ground level Contrast: Contrast Medium: Contrast Amount: Contrast Method: CONFIDENTIALITY STATEMENT This report is intended only for use by the referring physician, and only in accordance with law. If you received this in error, call [phone]. Page 1 of 1 PROCEDURE INFORMATION: Exam: XR Right Knee Exam date and time: 01/29/2021 8:03 PM Age: 85 years old Clinical indication: Pain; Knee; Right; Additional info: Fall from ground level TECHNIQUE: Imaging protocol: XR Right knee. Views: 3 views. COMPARISON: No relevant prior studies available. FINDINGS: Bones/joints: Mild loss of articular cartilage is seen in the medial compartment of the right knee. No fracture is noted. No joint effusion or loose body is identified. Soft tissues: Normal. IMPRESSION: No acute change is identified. Thank you for allowing us to participate in the care of your patient. Dictated and Authenticated by: Quique Dobbs MD 01/29/2021 9:09 PM Central Time ( & [place]) [facility] Final Radiology Report Call: [phone] assistance Online chat: [email or web address] Name: SHANNAN YORK Age: 85Years F Date: 01/29/2021 SSN: -- : 1935 Study: CR KNEE 3V LT Requesting Physician: Alicia Giraldo Images: 3 Addl Studies: Provided Clinical History: Fall from ground level Contrast: Contrast Medium: Contrast Amount: Contrast Method: CONFIDENTIALITY STATEMENT This report is intended only for use by the referring physician, and only in accordance with law. If you received this in error, call [phone]. Page 1 of 1 PROCEDURE INFORMATION: Exam: XR Left Knee Exam date and time: 01/29/2021 7:59 PM Age: 85 years old Clinical indication: Pain; Knee; Left; Additional info: Fall from ground level TECHNIQUE: Imaging protocol: XR Left knee. Views: 3 views. COMPARISON: CR Foot Comp Min 3V Lt 01/29/2021 7:56 PM FINDINGS: Bones/joints: There is a strong suggestion of a hairline nondisplaced fracture of the proximal left fibula. Loss with articular cartilage in the medial compartment of the left knee is present with sharpening of the intercondylar eminences. Soft tissues: Edematous soft tissues are noted laterally. IMPRESSION: A closed hairline fracture of the proximal fibula cannot be excluded. Thank you for allowing us to participate in the care of your patient. Dictated and Authenticated by: Quique Dobbs MD 01/29/2021 9:14 PM Central Time ([place] & [place]) - Re-Assessments/Exams Free Text/Narrative Re-Assessment/Exam: 01/29/21 Xray bilateral knees and left foot obtained. Will not administer analgesics as patient took pain pill at CT prior to transfer. Findings of examination and imaging reviewed with patient and daughter. Proxi mal fibula fracture stabilized with knee immobilizer. Patient and daughter instructed on need for follow up with orthopedic surgeon; patient requested her images be sent to [facility]. Supportive cares for generalized pain and mobility needs discussed. Red flag signs and symptoms which would warrant reevaluation reviewed. Patient and daughter verbalized understanding and agreement with the plan of care. Departure - Departure Time of Disposition: 22:01 Disposition: DC/Tfer to [facility] Condition: Fair Clinical Impression: Fall from ground level Sprain of toe Qualifiers: Encounter type: initial encounter Qualified Code(s): S93.509A - Unspecified sprain of unspecified toe(s), initial encounter Fracture of left proximal fibula Qualifiers: Encounter type: initial encounter Fracture type: closed Fracture morphology: unspecified fracture morphology Qualified Code(s): S82.832A - Other fracture of upper and lower end of left fibula, initial encounter for closed fracture - Discharge Information *PRESCRIPTION DRUG MONITORING PROGRAM REVIEWED*: Not Applicable *COPY OF PRESCRIPTION DRUG MONITORING REPORT IN PATIENT JOSH: Not Applicable Instructions: Foot Sprain, Tibial and Fibular Fractures Referrals: PCP,None [Primary Care Provider] - Forms: ED Department Discharge Additional Instructions: 1.) Follow up with orthopedic surgeon in 2-3 days regarding fibula fracture. Your images were sent to [facility], per your request. The phone number for [facility] is 2.) You may continue of previously prescribed medication for pain. 3.) You may apply ice to the affected areas, as pain and swelling persist. 4.) Patient to have assist of two with ambulation and pivot until otherwise stated by a provider. Sepsis Event Note (ED) - Focused Exam Vital Signs: Vital Signs Temp Pulse Resp BP Pulse Ox 01/29/21 18:35 98.1 F 92 16 139/66 94 L - My Orders Last 24 Hours: My Active Orders 01/29/21 21:29 DME for Discharge [COMM] Stat - Assessment/Plan Last 24 Hours: My Active Orders 01/29/21 21:29 DME for Discharge [COMM] Stat
--- NOTE | 2021-01-29 21:07 | CR ---
PROCEDURE INFORMATION: Exam: XR Left Foot Exam date and time: 01/29/2021 7:56 PM Age: 85 years old Clinical indication: Pain; Foot; Left; Additional info: Fall from ground level TECHNIQUE: Imaging protocol: XR Left foot. Views: 3 or more views. COMPARISON: No relevant prior studies available. FINDINGS: Bones/joints: Old healed fractures of the 5th metatarsal and the proximal phalanx of the 4th metatarsal are noted. Moderate degenerative changes seen at between the navicular and the cuneiforms. No definite acute fracture is noted. Soft tissues: Extensive soft tissue swelling is seen dorsally over the forefoot. IMPRESSION: No definite acute fracture is identified.
--- NOTE | 2021-01-29 21:09 | CR ---
PROCEDURE INFORMATION: Exam: XR Right Knee Exam date and time: 01/29/2021 8:03 PM Age: 85 years old Clinical indication: Pain; Knee; Right; Additional info: Fall from ground level TECHNIQUE: Imaging protocol: XR Right knee. Views: 3 views. COMPARISON: No relevant prior studies available. FINDINGS: Bones/joints: Mild loss of articular cartilage is seen in the medial compartment of the right knee. No fracture is noted. No joint effusion or loose body is identified. Soft tissues: Normal. IMPRESSION: No acute change is identified.
--- NOTE | 2021-01-29 21:14 | CR ---
PROCEDURE INFORMATION: Exam: XR Left Knee Exam date and time: 01/29/2021 7:59 PM Age: 85 years old Clinical indication: Pain; Knee; Left; Additional info: Fall from ground level TECHNIQUE: Imaging protocol: XR Left knee. Views: 3 views. COMPARISON: CR Foot Comp Min 3V Lt 01/29/2021 7:56 PM FINDINGS: Bones/joints: There is a strong suggestion of a hairline nondisplaced fracture of the proximal left fibula. Loss with articular cartilage in the medial compartment of the left knee is present with sharpening of the intercondylar eminences. Soft tissues: Edematous soft tissues are noted laterally. IMPRESSION: A closed hairline fracture of the proximal fibula cannot be excluded.
== END 2021-01-29 22:19 ==
LOC: DL.ED 17:26
DX: S82.832A Other fracture of upper and lower end of left fibula, initial encounter for closed fracture (principal); S93.502A Unspecified sprain of left great toe, initial encounter; E11.22 Type 2 diabetes mellitus with diabetic chronic kidney disease; E03.9 Hypothyroidism, unspecified; I12.9 Hypertensive chronic kidney disease with stage 1 through stage 4 chronic kidney disease, or unspecified chronic kidney disease; N18.9 Chronic kidney disease, unspecified; E78.00 Pure hypercholesterolemia, unspecified; K21.9 Gastro-esophageal reflux disease without esophagitis; Z86.73 Personal history of transient ischemic attack (TIA), and cerebral infarction without residual deficits; Z87.891 Personal history of nicotine dependence; Z88.5 Allergy status to narcotic agent; Z88.8 Allergy status to other drugs, medicaments and biological substances; Z88.0 Allergy status to penicillin; Z88.1 Allergy status to other antibiotic agents; W18.39XA Other fall on same level, initial encounter; Y92.129 Unspecified place in nursing home as the place of occurrence of the external cause
CPT/HCPCS: 73562-LT; 73562-RT; 73630-LT; 99283-25